=== PATIENT | male | born 1995 | race Caucasian/White ===

== ENCOUNTER 2020-04-30 05:46 | Emergency (ER) | payer OTHER ==
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
--- OUTSIDE RECORDS SUMMARY | 2020-04-30 05:57 | XMS ---
:1995 Author Organization [facility] Support Name Relationship Address [place] [address] Re-disclosure Warning The records that you are about to access may contain information from federally- assisted alcohol or drug abuse programs. If such information is present, then the following federally mandated warning applies: This information has been disclosed to you from records protected by federal confidentiality rules (42 CFR part 2). The federal rules prohibit you from making any further disclosure of this information unless further disclosure is expressly permitted by the written consent of the person to whom it pertains or as otherwise permitted by 42 CFR part 2. A general authorization for the release of medical or other information is NOT sufficient for this purpose. The Federal rules restrict any use of the information to criminally investigate or prosecute any alcohol or drug abuse patient.The records that you are about to access may contain highly sensitive health information, the redisclosure of which is protected by Article 27-F of the [facility] Public Health law. If you continue you may haveaccess to information: Regarding HIV / AIDS; Provided by facilities licensed or operated by the [facility] Office of Mental Health; or Provided by the [facility] Office for People With Developmental Disabilities. If such information is present, then the following [facility] mandated warning applies: This information has been disclosed to you from confidential records which are protected by state law. State law prohibits you from making any further disclosure of this information without the specific written consent of the person to whom it pertains, or as otherwise permitted by law. Any unauthorized further disclosure in violation of state law may result in a fine or fdc sentence or both. A general authorization for the release of medical or other information is NOT sufficient authorization for further disclosure. Insurance Providers Payer name Policy type / Policy ID Covered Covered republican's Policy Plan Coverage type republican ID relationship to [place] Information [place] [facility] [id number] ANITRA MICHELLE
[2020-04-30 06:17] VITALS: BP 147/97; PULSE 65; TEMP 98; BMI 24.3
[2020-04-30] MEDS ORDERED: IBUPROFEN 600 MG TABLET (FP) PO ONE ×2 (06:17→06:22)
== END 2020-04-30 07:00 | disposition home or self-care (01) ==
LOC: JER 05:46
DX: M54.6 Pain in thoracic spine (principal); V87.7XXA Person injured in collision between other specified motor vehicles (traffic), initial encounter
CPT/HCPCS: 71045-TC-FY; 72070-TC-FY; 99284-25

== ENCOUNTER 2020-06-25 04:29 | Emergency (ER) | payer OTHER ==
[2020-06-25 04:40] VITALS: BP 156/98; PULSE 84; TEMP 97.9; BMI 24.3
[2020-06-25] MEDS ORDERED: IBUPROFEN 600 MG TABLET (FP) PO ONE ×2 (04:40→04:41)
== END 2020-06-25 05:37 | disposition home or self-care (01) ==
LOC: FER 04:29
DX: S93.401A Sprain of unspecified ligament of right ankle, initial encounter (principal)
CPT/HCPCS: 73610-TC-RT-FY; 99284-25

== ENCOUNTER 2020-11-30 01:17 | Emergency (ER) | payer OTHER ==
[2020-11-30] MEDS ORDERED: IBUPROFEN 400 MG TABLET (FP) PO ONE ×2 (01:25→01:29)
[2020-11-30 01:26] VITALS: BP 141/88; PULSE 94; TEMP 98; BMI 26.2
== END 2020-11-30 01:40 | disposition home or self-care (01) ==
LOC: FER 01:17
DX: M79.604 Pain in right leg (principal)
CPT/HCPCS: 99283-25

== ENCOUNTER 2021-06-04 05:40 | Emergency (ER) | payer OTHER ==
[2021-06-04 05:48] VITALS: BP 134/91; PULSE 79; TEMP 99; BMI 26.2
== END 2021-06-04 06:56 | disposition home or self-care (01) ==
LOC: FER 05:40
DX: S63.642A Sprain of metacarpophalangeal joint of left thumb, initial encounter (principal); Y99.8 Other external cause status
CPT/HCPCS: 73130-TC-LT-FY; 99283-25

== ENCOUNTER 2021-10-04 04:43 | Emergency (ER) | payer OTHER ==
[2021-10-04 04:49] VITALS: BP 156/99; PULSE 86; TEMP 98.8; BMI 27.3
[2021-10-04] MEDS ORDERED: DIPHTH,PERTUSS(ACELL),TET 0.5 ML DISP.SYRIN IM ONE ×2 (04:54→05:00)
[2021-10-04] MEDS ORDERED: IBUPROFEN 400 MG TABLET (FP) PO ONE ×2 (04:54→05:00)
== END 2021-10-04 05:27 | disposition home or self-care (01) ==
LOC: FER 04:43
PROC: 3E0234Z Introduction of Serum, Toxoid and Vaccine into Muscle, Percutaneous Approach (ICD-10-PCS; principal; 2021-10-04)
DX: S50.811A Abrasion of right forearm, initial encounter (principal); Y99.8 Other external cause status
CPT/HCPCS: 73090-TC-RT-FY; 90715; 99283-25

== ENCOUNTER 2021-12-29 18:50 | Emergency (ER) | payer OTHER ==
[2021-12-29 18:55] VITALS: BMI 27.3
[2021-12-29 19:05] VITALS: BP 127/86; PULSE 90; TEMP 98.9
[2021-12-29] MEDS ORDERED: IBUPROFEN 600 MG TABLET (FP) PO ONE ×2 (19:20→19:21)
== END 2021-12-29 19:36 | disposition home or self-care (01) ==
LOC: FER 18:50
DX: S80.212A Abrasion, left knee, initial encounter (principal); S76.311A Strain of muscle, fascia and tendon of the posterior muscle group at thigh level, right thigh, initial encounter; W01.0XXA Fall on same level from slipping, tripping and stumbling without subsequent striking against object, initial encounter; Y35.811A Legal intervention involving manhandling, law enforcement official injured, initial encounter
CPT/HCPCS: 99283-25

== ENCOUNTER 2022-01-12 18:26 | Emergency (ER) | payer OTHER ==
[2022-01-12 18:50] VITALS: BP 151/97; PULSE 80; TEMP 98.3; BMI 27.3
[2022-01-14] MEDS ORDERED: CIPROFLOXACIN 400 MG/D5W 400 MG/200 ML IVPB IVPB ONE (12:00)
== END 2022-01-12 19:00 | disposition home or self-care (01) ==
LOC: FER 18:26
DX: M25.561 Pain in right knee (principal)
CPT/HCPCS: 99283-25

== ENCOUNTER 2022-08-01 13:32 | Emergency (ER) | payer OTHER ==
[2022-08-01] MEDS ORDERED: IBUPROFEN 600 MG TABLET (FP) PO ONE ×2 (13:35→13:53)
[2022-08-01 13:46] VITALS: BP 146/91; PULSE 91; RESP 18; TEMP 98.5; BMI 28.0
[2022-08-01] MEDS ORDERED: LIDOCAINE HCL 1%, 10 MG/ML (50 mL VIAL) SQ ONE (13:55)
[2022-08-01] MEDS ORDERED: LIDOCAINE HCL 1%, 10 MG/ML (20ML VIAL) ONE (13:57)
== END 2022-08-01 15:57 | disposition home or self-care (01) ==
LOC: FER 13:32
PROC: 0PSPXZZ Reposition Right Metacarpal, External Approach (ICD-10-PCS; principal; 2022-08-01)
DX: S62.336A Displaced fracture of neck of fifth metacarpal bone, right hand, initial encounter for closed fracture (principal); W22.8XXA Striking against or struck by other objects, initial encounter
CPT/HCPCS: 73130-TC-RT-FY; 99283-25

== ENCOUNTER 2023-09-05 04:02 | Emergency (ER) | payer OTHER ==
[2023-09-05 04:09] VITALS: BP 131/87; PULSE 105; RESP 17; TEMP 97.8; BMI 28.0
== END 2023-09-05 05:29 | disposition home or self-care (01) ==
LOC: JER 04:02
DX: S86.911A Strain of unspecified muscle(s) and tendon(s) at lower leg level, right leg, initial encounter (principal); M25.561 Pain in right knee; W19.XXXA Unspecified fall, initial encounter; Y04.0XXA Assault by unarmed brawl or fight, initial encounter
CPT/HCPCS: 99282-25